=== PATIENT | female | born 1940 | race Caucasian/White ===

== ENCOUNTER → 2021-02-22 | Outpatient (CLI) | payer MEDICARE, BC, OTHER ==
--- NOTE | 2021-02-22 11:38 | RAD ---
EXAM: CT ABDOMEN/PELVIS WITHOUT CONTRAST. HISTORY: Crohn disease, left abdominal pain. TECHNIQUE: Computed tomography of the abdomen and pelvis was performed without intravenous contrast. One or more of the following individualized dose reduction techniques were utilized for this examinat ion: 1. Automated exposure control. 2. Adjustment of the mA and/or kV according to patient size. 3. Use of iterative reconstruction technique. COMPARISON: None. FINDINGS: Lung windows through the visualized portions of the bases reveal innumerable tiny bilateral lung nodules measuring <4 mm. There is mild scattered air trapping and groundglass opacity bilateral ly. Aortic valve and coronary calcifications arteries noted. Bone windows reveal no suspicious lesion s. There are calcified granulomas in the liver and spleen. The gallbladder contains many stones but ther e is no evidence of acute cholecystitis by CT. Small stones are noted within the distal common duct. The distal pancreatic duct is dilated at 5 mm. No focal pancreatic lesions are appreciated by noncont rast CT. The adrenal glands and kidneys are unremarkable. There are no pathologically enlarged lymph nodes. Th e uterus is surgically absent. There is wall thickening of the descending colon with surrounding inflammatory change. The stomach is decompressed but there is suggestion of some wall thickening. There is no clear small bowel wall thi ckening. There is no small bowel obstruction. IMPRESSION: 1. Wall thickening of the left colon is most likely inflammatory given its extent. Correlate for caus es of colitis. 2. Wall thickening of the stomach may be from luminal decompression or gastritis. Endoscopy could fur ther assess both findings. 3. Choledocholithiasis without biliary dilatation. Ongoing management is recommended. 4. Cholelithiasis. 5. 1.6 x 1.3 cm indeterminate nodule within the left lung base. This may represent rounded atelectasi s but neoplasm is not excluded. Three-month follow-up or PET/CT is recommended if long-term stability is not already known. 6. Innumerable lung nodules in the bases along with air trapping and ground glass opacities are most likely postinflammatory. Comparison with older studies is recommended. 7. Aortic valve calcifications. Correlate for aortic stenosis. Electronically signed by: Karissa Hendrix MD (02/22/2021 11:36 AM) [facility]
== END ==
LOC: CT 08:03
PROVIDERS: ATTEND Specialist
DX: K80.50 Calculus of bile duct without cholangitis or cholecystitis without obstruction (principal); K80.20 Calculus of gallbladder without cholecystitis without obstruction; R91.1 Solitary pulmonary nodule; I35.1 Nonrheumatic aortic (valve) insufficiency; I25.10 Atherosclerotic heart disease of native coronary artery without angina pectoris; K75.3 Granulomatous hepatitis, not elsewhere classified; K63.89 Other specified diseases of intestine; K50.90 Crohn's disease, unspecified, without complications
CPT/HCPCS: 74176

== ENCOUNTER 2021-05-30 15:26 | Emergency (ER) | payer MEDICARE, BC, OTHER ==
[~2021-05-30] VITALS: Ht 162.6 cm; Wt 70.0 kg
[2021-05-30] MEDS ORDERED: IV NORMAL SALINE 1,000ML 1,000 ML IV ONE (17:00)
[2021-05-30] MEDS ORDERED: NOREPINEPHRINE BITARTRATE 8 MG in IV DEXTROSE 5% 250 ML IV PRN (17:00)
--- NOTE | 2021-05-30 17:07 | PHYS DOC ---
Past History Additional Past Medical Histor: Crohns, histoplasmosis, (TEO JACKSON [employer]) Past Surgical History: Hysterectomy, Tonsillectomy, Other Additional Past Surgical Histo: bowel resection (TEO JACKSON APRN) Alcohol Use: None (TEO JACKSON APRN) Adult General Chief Complaint Chief Complaint: ABNORMAL LABS 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 Patient states she was seen by the PCP yesterday after having a near syncope episode on May 26, 2021. She states they did x-rays as well as lab work. She states she received a call today stating her CRP is greater than 100 and was sent to the ED for infection work-up. Patient denies any fever, cough, shortness of breath reports fatigue. She states she has history of presyncope events previously so that is not usual. Denies any chest pain, shortness of breath. Denies any presyncope symptoms right now. Denies any pain radiating to bilateral lower extremities, denies any loss of bowel/bladder function. ([employer]) Review of Systems Review of Systems Constitutional:reports fatigue Denies fever or chills [] Eyes: Denies change in visual acuity, redness, or eye pain [] HENT: Denies nasal congestion or sore throat [] Respiratory: Denies cough or shortness of breath [] Cardiovascular: No additional information not addressed in HPI [] GI: Denies abdominal pain, nausea, vomiting, bloody stools or diarrhea [] : Denies dysuria or hematuria [] Musculoskeletal: Denies back pain or joint pain [] Integument: Denies rash or skin lesions [] Neurologic: Reports presyncope. Denies headache, focal weakness or sensory changes [] All other systems were reviewed and found to be within normal limits, except as documented in this note. ([employer]) Current Medications Current Medications Current Medications Medications (Trade) Dose Ordered Sig/Greta Start Time Stop Time Status Last Admin Dose Admin Norepinephrine Bitartrate 8 mg/ Dextrose 258 ml @ 0 mls/hr CONT PRN 05/30/21 17:00 UNV Sodium Chloride 1,000 ml @ 1,000 mls/hr 1X ONCE 05/30/21 17:00 05/30/21 17:59 ([employer]) Allergies Allergies Allergies Coded Allergies Type Severity Reaction Last Updated Verified Penicillins Allergy Unknown Hives 05/30/21 Yes (TEO JACKSON APRN) Physical Exam Physical Exam Constitutional: Well developed, well nourished, no acute distress, non-toxic a ppearance. [] HENT: Normocephalic, atraumatic, bilateral external ears normal, oropharynx moist, no oral exudates, nose normal. [place] Eyes: PERRLA, EOMI, conjunctiva normal, no discharge. [] Neck: Normal range of motion, no tenderness, supple, no stridor. [] Cardiovascular:Heart rate regular rhythm, no murmur [] Lungs & Thorax: Bilateral breath sounds clear to auscultation [] Abdomen: Bowel sounds normal, soft, no tenderness, no masses, no pulsatile masses. [] Skin: Warm, dry, no erythema, no rash. [] Back: No tenderness, no CVA tenderness. [] Extremities: No tenderness, no cyanosis, no clubbing, ROM intact, no edema. [] Neurologic: Alert and oriented X 3, normal motor function, normal sensory function, no focal deficits noted. [] Psychologic: Affect normal, judgement normal, mood normal. [] ([employer]) Current Patient Data Vital Signs Vital Signs Date Time Temp Pulse Resp B/P (MAP) Pulse Ox O2 Delivery O2 Flow Rate FiO2 05/30/21 16:36 98.4 82 16 140/74 (96) 95 (TEO JACKSON APRN) EKG EKG [] ([employer]) Radiology/Procedures Radiology/Procedures [] ([employer]) Heart Score C/O Chest Pain: N/A Risk Factors: Risk Factors: DM, Current or recent (<one month) smoker, HTN, HLP, family history of CAD, obesity. Risk Scores: Risk Factors: DM, Current or recent (<one month) smoker, HTN, HLP, family history of CAD, obesity. ([employer]) Course & Med Decision Making Course & Med Decision Making Pertinent Labs and Imaging studies reviewed. (See chart for details) This is a 81-year-old female patient presented to the ED today to be evaluated for elevated CRP that was done yesterday per her statement. Patient said the PCP sent her for infection work-up. Temperature 98.4, heart rate 82, respirations 16, blood pressure 140/74, O2 sats 95% on room air CBC with a WBC of 13.0, hemoglobin 10.3 with hematocrit of 33.1, history of anemia. Potassium 2.9, patient was given 80 mEq of potassium and instructed to increase dietary potassium intake. CRP 105. Pelvis x-ray as well as chest x-rays were negative for any acute findings UA positive for nitrites, trace amount of leukocytes, WBCs greater than 40, many bacteria. [address] Deluca he states CRP is a nonspecific acute phase reaction marker. Start patient on antibiotics and send her home. Patient was started on Cipro in the ED. Discharged with Cipro. Instructed to push fluids. She already has hydrocodone for pain. Follow-up with PCP next week. Provided return precautions. (TEO JACKSON APRN) Dragon Disclaimer Dragon Disclaimer This electronic medical record was generated, in whole or in part, using a voice recognition dictation system. (TEO JACKSON APRN) Departure Departure: Impression: Primary Impression: Acute pyelonephritis Additional Impressions: Hypokalemia Fall Back pain Disposition: 01 HOME / SELF CARE / HOMELESS Condition: STABLE Referrals: ADAM RAZO MD (PCP) Follow-up next week Patient Instructions: Back Pain, Adult, Hypokalemia, Pyelonephritis, Adult Additional Instructions: You were evaluated in the emergency room and noted to have pyelonephritis/infection in your kidneys. Take the prescribed antibiotics until completed. Push fluids. Your potassium is also still running low. Increase your dietary potassium intake through foods like bananas. Follow-up with your doctor next week, come back to the ED at any point symptoms worsen Scripts Ciprofloxacin Hcl (CIPRO) 500 Mg Tablet 1 TAB PO BID for 7 Days, #14 TAB 0 Refills Prov: TEO JACKSON APRN 05/30/21 Attending Signature Attending Signature I have participated in the care of this patient and I have reviewed and agree with all pertinent clinical information above including history, exam, and recommendations. (MAIDA THORNTON MD) Attending Signature Attending Signature I have participated in the care of this patient and I have reviewed and agree with all pertinent clinical information above including history, exam, and recommendations. (MAIDA THORNTON MD) Attending Signature Attending Signature I have participated in the care of this patient and I have reviewed and agree with all pertinent clinical information above including history, exam, and recommendations. (MAIDA THORNTON MD) Problem Qualifiers Additional Impressions: Fall Encounter type: initial encounter Qualified Codes: W19.XXXA - Unspecified fall, initial encounter Back pain Back pain location: low back pain Chronicity: acute Back pain laterality: right Sciatica presence: without sciatica Qualified Codes: M54.50 - Low back pain, unspecified TEO JACKSON APRN May 30, 2021 17:07 MAIDA THORNTON MD May 31, 2021 21:02
[2021-05-30 18:00] LABS: BASO # 0.1 x10^3/uL (0.0-0.2); BASO % 1 % (0-3); EOS # 0.3 x10^3/uL (0.0-0.7); EOS % 2 % (0-3); HEMATOCRIT 33.1 % (36.0-47.0); HEMOGLOBIN 10.3 g/dL (12.0-15.5); LYMPH # 1.3 x10^3/uL (1.0-4.8); LYMPH % 10 % (24-48); MEAN CORPUSCULAR HEMOGLOBIN 24 pg (25-35); MEAN CORPUSCULAR HGB CONC 31 g/dL (31-37); MEAN CORPUSCULAR VOLUME 78 fL (79-100); MONO # 1.2 x10^3/uL (0.0-1.1); MONO % 9 % (0-9); NEUT # 10.1 x10^3uL (1.8-7.7); NEUT % 78 % (31-73); PLATELET COUNT 516 x10^3/uL (140-400); RED BLOOD COUNT 4.25 x10^6/uL (3.50-5.40); RED CELL DISTRIBUTION WIDTH 17.3 % (11.5-14.5)
[2021-05-30 18:25] LABS: ALBUMIN/GLOBULIN RATIO 0.7 (1.0-1.7); ALK PHOS 72 U/L (46-116); ALT (SGPT) 14 U/L (14-59); ANION GAP 11 (6-14); AST (SGOT) 16 U/L (15-37); BLOOD UREA NITROGEN 10 mg/dL (7-20); BUN/CREATININE RATIO 11 (6-20); C REACTIVE PROTEIN 130.7 mg/L (0-3.3); CALCIUM 8.6 mg/dL (8.5-10.1); CARBON DIOXIDE 30 mmol/L (21-32); CHLORIDE 98 mmol/L (98-107); CREATININE 0.9 mg/dL (0.6-1.0); GFR 60.1; GLUCOSE 100 mg/dL (70-99); SODIUM 139 mmol/L (136-145); TOTAL BILIRUBIN 0.3 mg/dL (0.2-1.0); TOTAL PROTEIN 7.3 g/dL (6.4-8.2)
[2021-05-30 18:40] LABS: POTASSIUM 2.9 mmol/L (3.5-5.1)
[2021-05-30 19:03] LABS: BACTERIA,URINE MANY /HPF (0-FEW); BILIRUBIN,URINE NEG (NEG); CLARITY,URINE HAZY; COLOR,URINE YELLOW; GLUCOSE,URINE NEG (NEG); NITRITE,URINE POS (NEG); SQUAMOUS EPITHELIAL CELL,UR MOD /LPF; WBC,URINE >40 /HPF (0-4)
[2021-05-30] MEDS ORDERED: POTASSIUM CHLORIDE 20 MEQ TABLET.ER. PO ONE (19:15)
[2021-05-30] MEDS ORDERED: CIPR500T94 PO (19:33)
[2021-05-30] MEDS ORDERED: CIPROFLOXACIN 400MG PREMIX 200 ML IV ONE (19:45)
[2021-05-30] MEDS ORDERED: CYCLOBENZAPRINE 10 MG TABLET. PO ONE (20:00)
[2021-05-30] MEDS ORDERED: POTASSIUM BICARB 20 MEQ EFFERVESCENT TABLET. PO ONE (20:00)
[2021-05-30] MEDS ORDERED: ONDANSETRON PF 4 MG/2 ML VIAL. IVP ONE (20:00)
[2021-05-30] MEDS ORDERED: MORPHINE SULFATE 4 MG/ML DISP.SYRIN. IV ONE (20:00)
[2021-05-30 20:27] LABS: INFLUENZA A PATIENT NEGATIVE (NEGATIVE); INFLUENZA B PATIENT NEGATIVE (NEGATIVE)
[2021-05-30 20:45] VITALS: BP 126/65
== END 2021-05-30 20:53 | disposition home or self-care (01) ==
LOC: ER 15:26
DX: N10 Acute pyelonephritis (principal); E87.6 Hypokalemia; Z88.0 Allergy status to penicillin; Z90.710 Acquired absence of both cervix and uterus; Z20.822 Contact with and (suspected) exposure to COVID-19
CPT/HCPCS: 36415; 80053; 81001; 82553; 83605; 85025; 86140; 87040; 87086; 87804; 96361; 96365; 96375; 99284; C9803; J0744; J2270; J2405; J7030; U0003

== ENCOUNTER → 2021-10-16 | Outpatient (CLI) | payer MEDICARE, BC, OTHER ==
[~2021-10-16] MED LIST: CIPR500T94 PO
--- NOTE | 2021-10-16 15:24 | RAD ---
EXAM: Pelvis and left hip, 2 views; thoracic spine, 3 views; lumbar spine, 3 views. HISTORY: Pain. Fall. COMPARISON: CT dated 02/22/2021. FINDINGS: Pelvis and left hip: A frontal view of the pelvis and frog-leg view of the left hip are obtained. The re is no pelvic fracture. The femoral heads are normal in configuration. The sacroiliac joints are in tact. Lumbar spine: 3 views of the lumbar spine are obtained. There is a moderate L3 compression fracture. This is acute in appearance. There is no retropulsion of the cortex at this level. There is also a mi ld L1 wedge compression fracture. This is chronic in appearance. There is no retropulsion of the anna marie ex at this level. There is multilevel endplate remodeling. There is disc space narrowing and facet ar thropathy primarily at L4-L5 and L5-S1. There is mild S-shaped scoliosis. There is an incidental righ t upper abdomen ostomy. Thoracic spine: There is mild thoracic scoliosis. There is multilevel endplate remodeling. There is a lso degenerative endplate remodeling and disc space narrowing at C6-C7, not formally assessed on this exam. There is a right chest wall port catheter with the tip in the superior cavoatrial junction. IMPRESSION: 1. Moderate acute L3 compression fracture. No retropulsion of the cortex is seen. 2. Mild chronic appearing L1 compression fracture. This is new compared to the comparison CT. No retr opulsion of the cortex is seen. 3. Multilevel degenerative change involving the spine, primarily at the lower lumbar levels. 4. No acute pelvic fracture. 5. Scoliosis. Electronically signed by: Zoë Cook MD (10/16/2021 3:21 PM) [id number]
[2021-10-16 15:39] LABS: BASO % 0 % (0-3); EOS % 0 % (0-3); HEMATOCRIT 32.9 % (36.0-47.0); HEMOGLOBIN 10.9 g/dL (12.0-15.5); LYMPH # 0.8 x10^3/uL (1.0-4.8); LYMPH % 7 % (24-48); MEAN CORPUSCULAR HEMOGLOBIN 31 pg (25-35); MEAN CORPUSCULAR HGB CONC 33 g/dL (31-37); MEAN CORPUSCULAR VOLUME 93 fL (79-100); MONO % 9 % (0-9); NEUT # 9.1 x10^3uL (1.8-7.7); NEUT % 84 % (31-73); PLATELET COUNT 297 x10^3/uL (140-400); RED BLOOD COUNT 3.53 x10^6/uL (3.50-5.40); RED CELL DISTRIBUTION WIDTH 19.9 % (11.5-14.5); WHITE BLOOD COUNT 10.9 x10^3/uL (4.0-11.0)
[2021-10-16 15:53] LABS: ALBUMIN 2.4 g/dL (3.4-5.0); ALBUMIN/GLOBULIN RATIO 0.9 (1.0-1.7); CALCIUM 7.4 mg/dL (8.5-10.1); CREATININE 0.6 mg/dL (0.6-1.0); GFR 95.9; TOTAL BILIRUBIN 0.4 mg/dL (0.2-1.0); TOTAL PROTEIN 5.2 g/dL (6.4-8.2)
[2021-10-16 15:59] LABS: POTASSIUM 2.2 mmol/L (3.5-5.1)
== END ==
LOC: RAD 14:34
PROVIDERS: ATTEND Specialist
DX: S32.030A Wedge compression fracture of third lumbar vertebra, initial encounter for closed fracture (principal); W19.XXXA Unspecified fall, initial encounter; M48.02 Spinal stenosis, cervical region; M41.87 Other forms of scoliosis, lumbosacral region; M47.817 Spondylosis without myelopathy or radiculopathy, lumbosacral region; Y93.89 Activity, other specified; Y92.89 Other specified places as the place of occurrence of the external cause; Y99.8 Other external cause status
CPT/HCPCS: 36415; 72072; 72100; 73501; 80053; 85025